=== PATIENT | male | born 1950 | race Two or more races ===

== ENCOUNTER 2018-02-09 09:09 | Outpatient (CLI) | payer OTHER ==
[2018-02-09] MEDS ORDERED: ENALAPRIL MALEAT5 MG PO (13:16)
[2018-02-09] MEDS ORDERED: NEURONTIN300 MG PO (13:17)
[2018-02-09] MEDS ORDERED: ULTRACET PO (13:17)
[2018-02-09] MEDS ORDERED: BICALUTAMIDE50 MG PO (13:18)
== END 2018-02-09 09:23 | disposition home or self-care (01) ==
LOC: RAD 501 09:09
DX: R07.1 Chest pain on breathing (principal)

== ENCOUNTER 2018-02-09 12:00 | Inpatient (IN) | payer OTHER ==
[~2018-02-09] VITALS: Ht 243.8 cm; Wt 74.8 kg
[2018-02-09] MEDS ORDERED: ENALAPRIL MALEAT5 MG PO (13:16)
[2018-02-09] MEDS ORDERED: ULTRACET PO (13:17)
[2018-02-09] MEDS ORDERED: NEURONTIN300 MG PO (13:17)
[2018-02-09] MEDS ORDERED: BICALUTAMIDE50 MG PO (13:18)
[2018-02-17] MEDS ORDERED: PERCOCET 5-3251 EACH PO (15:28)
[2018-02-17] MEDS ORDERED: CLONAZEPAM1 MG PO (15:28)
[2018-02-17] MEDS ORDERED: DOCUSATE SODIU100 MG PO (15:28)
[2018-02-17] MEDS ORDERED: AMOX-CLAV 875-1 EACH PO (15:28)
[2018-02-17] MEDS ORDERED: GABAPENTIN800 MG PO (15:28)
== END 2018-02-18 15:57 | DRG 460 ==
LOC: EDUNIT# 12:00 → PED 02-17 04:55 → O/R 02-17 04:55 → SURH 02-17 12:00 → PED 02-17 16:18
PROVIDERS: Orthopaedic Surgery Orthopaedic Surgery of the Spine
PROC: 00NY0ZZ Release Lumbar Spinal Cord, Open Approach (ICD-10-PCS; 2018-02-17)
PROC: 0ST40ZZ Resection of Lumbosacral Disc, Open Approach (ICD-10-PCS; 2018-02-17)
PROC: 07DS3ZZ Extraction of Vertebral Bone Marrow, Percutaneous Approach (ICD-10-PCS; 2018-02-17)
PROC: 0SG30AJ Fusion of Lumbosacral Joint with Interbody Fusion Device, Posterior Approach, Anterior Column, Open Approach (ICD-10-PCS; principal; 2018-02-17 16:00)
DX: M47.27 Other spondylosis with radiculopathy, lumbosacral region (principal); M51.17 Intervertebral disc disorders with radiculopathy, lumbosacral region; I10 Essential (primary) hypertension